=== PATIENT | male | born 1940 | race Two or more races ===

== ENCOUNTER 2024-10-26 15:08 | Outpatient (REF) | payer MEDICAID, SELFPAY ==
--- OUTSIDE RECORDS SUMMARY | 2024-10-26 17:53 | XMS_ITS | Data Portability ---
Author Organization [place] - [facility], Allergy Address [address] [address] Assessment No assessment recorded. Plan of Treatment Reminders Order Date Submit Date Provider Last Modified By Organization Details Last Modified Time Details Appointments None record ed. Lab None record ed. Referral None record ed. Procedures None record ed. Surgeries None record ed. Imaging None record ed. Medication Orders None record ed. Patient TargetsNo targets recorded. Patient InstructionsNo instructions recorded. Reason for Referral None Reported. Results Created Date Observation Date Name Description Value Unit Range Abnormal Flag Note LastModifiedBy Organization Detail LastModifiedTime 10/10/19 25 audio gram No observ ation record ed. BARCODE Not Available 2024 16:30:45 Result Notes None recorded. Problems Name Problem SNOMED Code Status Onset Date Resolution Date Notes Provider Name and Address Organization Details Recorded Time Impacted cerumen of bilateral ears 1325409565229 108 Active 2024 KAJAL Lopez MD [address] [place] [address], [place], [address], [facility] 10:14:57 Sensorineur al hearing loss of bilateral ears 979286931 Active 2024 KAJAL Lopez MD [address] [place] [address], [place], [address], [facility] 10:19:05 Problem Notes None recorded. Procedures Surgical History Date Name Laterality Status Provider Name and Address Organization Details Recorded Time 10/10/19 25 Tympanometry (21761) completed FLORENTIN HERNANDEZ 100 [facility],[place] [address], [place], [address], [facility] 10/09/2024 10:32:09 10/10/19 25 Air & Bone Audio (12068) completed FRANCO MORGAN, [facility] 100 [facility],[place] [address], [place], [address], [facility] - [facility] 10/09/2024 10:32:02 Imaging Results Imaging Date Name Status LastModified by Organiz ation Details LastModified Time 10/09/2024 audiogram completed BARCODE Information no t available 10/09/2024 16:30:45 Procedure Notes None recorded. Medical Equipment None Reported. Medications Name Sig Start Date Stop Date Status Note LastModified by Organization Details LastModified Time amoxicillin 500 mg capsule TAKE 1 CAPSULE BY MOUTH EVERY 8 HOURS UNTIL FINISHED active Not Available Not Available No t Available Vitals Date Recorded Body height Body mass index (BMI) Body weight Provider Name and Address Organization Details Last Updated DateTime 10/09/2024 167.64 cm 23.6 kg/m2 19340.49 g Rubén Magana [place] - [facility] 10/09/2024 09:53:21 Social History None recorded. Functional Status None recorded. Mental Status None recorded. Family History Nothing Reported. Medical History No medical history recorded. Past Encounters Encounter ID Performer Location Encounter Start Date Encounter Closed Date Diagnosis/Indication Diagnosis SNOMED-CT Code Diagnosis ICD10 Code Diagnosis Note [id number] KAJAL BLANC MD [facility] on [address] [place] [address] 10/09/2024 09:26:28 10/09/2024 09:42:48 Sensorineural hearing loss of bilateral ears 056020888 H90.3 Audiologic al evaluation results: 10/09/2024R ight ear:{{Norm al Normal through 2 kHz Mild* Moderate M oderately- severe Sev ere Profou nd}} {{hearing hearing. s loping to a mild slopi ng to a moderate s loping to moderately severe slo ping to severe* sl oping to profound f lat high frequency low frequency mid frequency cookie bite dupree curve}} {{with sen sorineural hearing loss with* cond uctive hearing loss with mixed hearing loss with}}Left ear:{{Norm al Normal through 2 kHz Mild M oderate* M oderately- severe Sev ere Profou nd}} {{hearing hearing. s loping to a mild slopi ng to a moderate s loping to moderately severe slo ping to severe slo ping to profound* flat high frequency low frequency mid frequency cookie bite dupree curve}} {{with sen sorineural hearing loss with* cond uctive hearing loss with mixed hearing loss with}} Tympanomet ry:Right Ear:{{Type A* Type A with rounded peak Type A with double peak Type As Type As with rounded peak Type Ad Type C Type C, shallow & rounded peak Type B Type B with large volume Cou ld not maintain a hermetic seal}}Left Ear:{{Type A* Type A with rounded peak Type A with double peak Type As Type As with rounded peak Type Ad Type C Type C, shallow & rounded peak Type B Type B with large volume Cou ld not maintain a hermetic seal}} Patient's audiogram shows bilateral {{mild mod erate* sev ere}} sensorineu ral hearing loss with {{well maintained moderatel y reduced po or unknown #}} speech discrimina tion. There is enough hearing loss to affect day-to-day hearing performanc e. We discussed in detail the pros and cons of amplificat ion (hearing aids). Patient would like to learn more about this option so {{we will set them up for a hearing aid evaluation I have provided a copy of the audiogram, a list of [facility] hearing aid providers, and medical clearance for amplificat ion so the patient can pursue this at their convenienc e}}. Patient is medically cleared for amplificat ion {{in the right ear in the left ear bilate rally*}}. Health Concerns Section Related Observation LastModified by Organization Detai ls LastModified Time None Recorded Concern Status LastModified by Organization Details LastModified Time None Recorded Advance Directives Directive None Recorded Payers Encounter Date Sequence Insurance Name Policy Number Policy Dwyer Covered Member ID Dwyer Member ID Guarantor Name 10/09/2024 1 [place] [facility] Trina Jones [id number] Trina Jones Notes Date Note Type Note Provider Name and Address Organization Details Recorded Time 10/09/2024 text/html He presents with decline in his hearing in the left ear over 10 years. The patient denies other ear problems. Has tinnitus AU. KAJAL BLANC MD [address] [place] [address], [place], [address], [facility] - [facility] 10/09/2024 10:38:53
== END 2024-10-26 15:09 | disposition home or self-care (01) ==
LOC: HO.HAP 15:08
PROVIDERS: Visit Provider Otolaryngology
DX: Z46.1 Encounter for fitting and adjustment of hearing aid (principal); H90.3 Sensorineural hearing loss, bilateral
CPT/HCPCS: 92591

== ENCOUNTER 2024-11-24 14:07 | Outpatient (REF) | payer MEDICAID, SELFPAY ==
--- OUTSIDE RECORDS SUMMARY | 2024-11-24 14:08 | XMS_ITS | Data Portability ---
Author Organization [place] - [facility], Allergy Address [address] [address] Assessment No assessment recorded. Plan of Treatment [...] Recorded Time Impacted cerumen of bilateral ears 7647168464932 108 Active 2024 KAJAL Lopez MD [address] [place] [address], [place], [address], [facility] 10:14:57 Sensorineur al hearing loss of bilateral ears 152984782 Active 2024 KAJAL Lopez MD [address] [place] [address], [place], [address], [facility] 10:19:05 Problem Notes None recorded. Procedures Surgical History Date Name Laterality Status Provider Name and Address Organization Details Recorded Time 10/10/19 25 Tympanometry - 38869 completed FRANCO MORGAN, AUD 100 [facility],[place] [address], [place], [address], [facility] 10/09/2024 10:32:09 10/10/19 25 Air & Bone Audio - 78710 completed FRANCO MORGAN, AUD 100 [facility],[place] [address], [place], [address], [facility] - [facility] 10/09/2024 10:32:02 Imaging Results Imaging Date Name [...] Updated DateTime 10/09/2024 167.64 cm 23.6 kg/m2 95475.49 g Rubén Magana [place] - [facility] 10/09/2024 09:53:21 Social History None recorded. Functional Status None recorded. Mental Status None recorded. Family History Nothing Reported. Medical History No medical history recorded. Past Encounters Encounter ID Performer Location Encounter Start Date Encounter Closed Date Diagnosis/Indication Diagnosis SNOMED-CT Code Diagnosis ICD10 Code Diagnosis Note [id number] KAJAL BLANC MD [facility] on 6 [place] [address] 10/09/2024 09:26:28 10/09/2024 09:42:48 Sensorineural hearing loss of bilateral ears [id number] H90.3 Audiologic al evaluation results: 10/09/2024R ight [...] copy of the audiogram, a list of [facility] hearing aid providers, and medical clearance for [...] Recorded Advance Directives Directive None Recorded Payers Insurance Date Sequence Insurance Name Policy Number Policy Dwyer Covered Member ID Dwyer Member ID Guarantor Name [id number] 1 [place]: [id number] Trina Jones [id number] Trina Jones Notes Date Note Type Note Provider Name and Address Organization Details Recorded Time 10/09/2024 text/html He presents with decline in his hearing in the left ear over 10 years. The patient denies other ear problems. Has tinnitus AU. KAJAL BLANC MD [address] [place] [address], [place], [address], [facility] - [facility] 10/09/2024 10:38:53
--- NOTE | 2024-11-27 09:16 | MHC.AU.HA2 ---
Hearing Instrument Fitting- Adult- Binaural Date of Visit: 11/27/24 Railroad Crane Operator Used: Phone interpreter for the deaf. See note. Hearing Instruments Dispensed: Right Ear: Make, Model, Color, Serial Number: Oticon Intent 2 miniRITE R, honey beige [id number] Coater Operator Repair Warranty: 11/27/2027 Coater Operator Loss and Damage Warranty: 11/27/2027 [facility] Service Plan: Battery Size: Rechargeable Tapper Bit/Slim Tube: 2 85 [place]/Dome/CShell/SlimTip: 8mm power dome Type of Wax Guard: Oticon Minifit Prowax Left Ear: Make, Model, Color, Serial Number: Oticon Intent 2 miniRITE R, honey beige [id number] Coater Operator Repair Warranty: 11/27/2027 Coater Operator Loss and Damage Warranty: 11/27/2027 [facility] Service Plan: Battery Size: Rechargeable Tapper Bit/Slim Tube: 2 85 [place]/Dome/CShell/SlimTip: 8mm power dome Type of Wax Guard: Oticon Minifit Prowax Accessories/Assistive Technology: Oticon tank charger minirite S#[id number] Warranty 11/27/2027 Summary of Fitting: Trina is here with his son-in-law for fitting with Oticon Intent 2 miniRITE R hearing aids. Railroad Crane Operator note: Pt/family member requested video interpreter for the deaf as no in-person was available through agency, unable to get video due to high-demand for language at that time despite several attempts with both companies, Alejandra was present for observation and assisted. Pt's family member assisted in interpreting the voice call as pt had difficult time understanding audio. Programmed and verified to NAL-NL2 real ear targets. Pt very pleased with sound quality. VC active. Reviewed basics of use, cleaning, insertion/removal, charging. Review wax guards at follow up. Plans to pair with phone at home. Follow up in 2-3 weeks. Recommendations: Recommendations: A hearing instrument follow-up is recommended in 2-3 weeks. Diagnosis Code(s): Primary Diagnosis: H90.3 Bilateral Sensorineural Hearing Loss Signature: Provider: Rosi Hester, [facility]
== END 2024-11-24 14:08 | disposition home or self-care (01) ==
LOC: HO.HAP 14:07
PROVIDERS: Visit Provider Otolaryngology
DX: Z46.1 Encounter for fitting and adjustment of hearing aid (principal); H90.3 Sensorineural hearing loss, bilateral
CPT/HCPCS: V5011; V5020; V5160; V5261

== ENCOUNTER 2024-12-14 14:08 | Outpatient (REF) | payer MEDICAID, SELFPAY ==
--- OUTSIDE RECORDS SUMMARY | 2024-12-14 16:45 | XMS_ITS | Data Portability ---
Author Organization [place] - [facility], Allergy Address [address] [address] Assessment No assessment recorded. Plan of Treatment [...] Recorded Time Impacted cerumen of bilateral ears 0267341615353 108 Active 2024 KAJAL Lopez MD [address] [place] [address], [place], [address], [facility] 10:14:57 Sensorineur al hearing loss of bilateral ears 453041930 Active 2024 KAJAL Lopez MD [address] [place] [address], [place], [address], [facility] 10:19:05 Problem Notes None recorded. Procedures Surgical History Date Name Laterality Status Provider Name and Address Organization Details Recorded Time 10/10/19 25 Tympanometry - 83588 completed FRANCO MORGAN, AUD 100 [facility],[place] [address], [place], [address], [facility] 10/09/2024 10:32:09 10/10/19 25 Air & Bone Audio - 20338 completed FRANCO MORGAN, AUD 100 [facility],[place] [address], [place], [address], [facility] - [facility] 10/09/2024 10:32:02 Imaging Results None recorded. Procedure Notes None recorded. Medical Equipment None [...] Updated DateTime 10/09/2024 167.64 cm 23.6 kg/m2 89189.49 g Rubén Magana [place] - [facility] 10/09/2024 09:53:21 Social History None recorded. Functional Status None recorded. Mental Status None recorded. Family History Nothing Reported. Medical History No medical history recorded. Past Encounters Encounter ID Performer Location Encounter Start Date Encounter Closed Date Diagnosis/Indication Diagnosis SNOMED-CT Code Diagnosis ICD10 Code Diagnosis Note [id number] KAJAL BLANC MD [facility] on [address] [place] [address] 10/09/2024 09:26:28 10/09/2024 09:42:48 Sensorineural hearing loss of bilateral ears [id number] H90.3 Audiologic al evaluation results: 10/09/2024R ight ear:Mild sloping to severe sensorineu ral hearing loss withLeft ear:Modera te sloping to profound sensorineu ral hearing loss with Tympanomet ry:Right Ear:Type ALeft Ear:Type A Patient's audiogram shows bilateral moderate sensorineu ral hearing loss with well maintained moderatel y reduced po or unknown speech discrimina tion. There is enough hearing loss to affect day-to-day hearing performanc e. We discussed in detail the pros and cons of amplificat ion (hearing aids). Patient would like to learn more about this option so . Patient is medically cleared for amplificat ion bilaterall y. Health Concerns Section Related Observation LastModified by Organization Detai ls LastModified Time None Recorded Concern Status LastModified by Organization Details LastModified Time None Recorded Advance Directives Directive None Recorded Payers Insurance Date Sequence Insurance Name Policy Number Policy Dwyer Covered Member ID Dwyer Member ID Guarantor Name [id number] 1 [place]: [facility] Trina Jones [id number] Trina Jones Notes Date Note Type Note Provider Name and Address Organization Details Recorded Time 10/09/2024 text/html He presents with decline in his hearing in the left ear over 10 years. The patient denies other ear problems. Has tinnitus AU. KAJAL BLANC MD [address] [place] [address], [address] - [facility] 10/09/2024 10:38:53
== END 2024-12-14 14:09 | disposition home or self-care (01) ==
LOC: HO.HAP 14:08
PROVIDERS: Visit Provider Otolaryngology
DX: Z13.89 Encounter for screening for other disorder (principal)

== ENCOUNTER 2025-06-19 14:33 | Outpatient (REF) | payer SELFPAY ==
--- OUTSIDE RECORDS SUMMARY | 2025-06-19 20:31 | XMS_ITS | Encounter Summary ---
Author Organization [facility] Address [address] [facility] [address] [place] [address] Phone Care Team Providers Care Field Map Editor Name Role Phone Lenny Charles Primary Care Provider Demetria Ray Unavailable [phone] Encounter Details Date Type Department Care Team (Late Contact Info) Description 05/19/2024 Procedure Pass [facility], Ct Scan - [address] [address] Social History Tobacco Use Types Packs/Day Years Used Date Smoking Tobacco: Never Smokeless Tobacco: Never Alcohol Use Standard Drinks/Week Comments Never 0 (1 standard drink = 0.6 oz pur e alcohol) Education Answer Date Recorded Are you interested in more education? Not on faisal e 02/28/2024 Are you concerned about learning? Not on file 02/28/2024 No 02/28/2024 No 02/28/2024 Digital Access Answer Date Recorded No 02/28/2024 No 02/28/2024 Reliable internet access at home? Not on file 02/28/2024 Device with a working camera? Not on file Sex and Gender Information Value Date Recorded Sex Assigned at Not on file Legal Sex Male 12:07 PM EDT Gender Identity Not on file Sexual Orientation Not on file documented as of this encounter Plan of Treatment Upcoming Encounters Date Type Department Care Team (Late Contact Info) Description 07/13/2025 12:30 PM EST Office Visit [facility] [address] [place] [address] Unknown, Unknown, Yadira Holliday PA-C [address] [place] [address] 08/02/2025 1:30 PM EST Blood Draw [facility] [address] [place] [address] Demetria Ray MBBS [address] [place] [address] 08/02/2025 2:30 PM EST Office Visit [facility] [address] [place] [address] Ashley Irene NP [address] [place] [address] [email or web address] documented as of this encounter Visit Diagnoses Not on filedocumented in this encounter Care Teams Field Map Editor Relationship Specialty Start Date End Date Lenny Charles PA [address] [place] [address] [email or web address] PCP - General Physician Clinical Trial Leader 02/28/24 Demetria Ray MBBS [address] [place] [address] [email or web address] Medical Oncology 04/05/24 documented as of this encounter Additional Source Comments The information contained in this document represents components of the legal health record. It is not the complete legal health record.[facility]
--- OUTSIDE RECORDS SUMMARY | 2025-06-19 20:31 | XMS_ITS | Encounter Summary ---
Author Organization [facility] Address [address] [facility] [address] [place] [address] Phone Care Team Providers Care Mint Machine Operator Name Role Phone Lenny Charles Primary Care Provider [phone] Demetria Ray Unavailable [phone] Encounter Details Date Type Department Care Team (Late Contact Info) Description 05/19/2024 Procedure Pass [facility], Ct Scan - [address] [address] Social History Tobacco Use Types Packs/Day Years [...] Description 07/13/2025 12:30 PM EST Office Visit [facility] 10 [place] [address] Unknown, Unknown, Yadira Holliday PA-C [address] [place] [address] 08/02/2025 1:30 PM EST Blood Draw [facility] 30 [place] [address] Demetria Ray MBBS [address] [place] [address] 08/02/2025 2:30 PM EST Office Visit [facility] [address] [place] [address] Ashley Irene NP [address] [place] [address] [email or web address] documented as of this encounter Visit Diagnoses Not on filedocumented in this encounter Care Teams Mint Machine Operator Relationship Specialty Start Date End Date Lenny Charles PA [address] [place] [address] [email or web address] PCP - General Physician Program Dir 02/28/24 Demetria Ray MBBS [address] [place] [address] [email or web address] Medical Oncology 04/05/24 documented as of this encounter Additional Source Comments The information contained in this document represents components of the legal health record. It is not the complete legal health record.[facility]
--- OUTSIDE RECORDS SUMMARY | 2025-06-19 20:31 | XMS_ITS | Clinical Summary ---
Author Organization [facility] Address [address] [address] Phone Care Team Providers Care Pigment Mixer Name Role Phone Lenny Charles Primary Care Provider [phone] Demetria Ray Unavailable [phone] Allergies Active Allergy Reactions Criticality Noted Date Comments Iodinated Contrast Media Hives Medium 04/03/2025 Medications No known medications Active Problems Problem Noted Date Diagnosed Date Diarrhea 04/16/2025 Assessment & Plan (04/16/2025 4:50 PM EDT): This is an 84-year-old gentleman with diarrhea and mild dull lower abdominal discomfort of unknown etiology. The patient had an ultrasound that showed gallstones without any evidence of cholecystitis. The patient does not have upper abdominal pain, indigestion. He does not have any problems with eating certain foods. The patient has been referred to GI but does not have an appointment yet. A CAT scan of the abdomen pelvis was also ordered but has not been scheduled. I gave the patient and his son-in-law information so that they can schedule the CAT scan. They will call the primary care to discuss getting an appointment for the plastics repairer as he has already been referred. This does not seem to be biliary in nature. There is no indication for any surgical intervention at this time. I personally reviewed the ultrasound results and all of the referral information that came over from the patient's primary care physician. Patient should follow-up on as-needed basis. I spent 47 minutes with this patient. The entire exam was performed using the in person parts interpreter Kym Jones. Thrombocytopenia 05/19/2024 Assessment & Plan (01/25/2025 9:17 AM EDT): 84-year-old male with history of chronic isolated moderate thrombocytopenia . I reviewed the differential diagnosis of thrombocytopenia at length with the patient and his son-in-law. He reports being in his usual state of health today, with no progressive fatigue, unintentional weight loss, abdominal pain, night sweats, recurrent infections or abnormal bleeding. He is hepatitis C negative. There is no history of alcohol use. No prior history of autoimmune disorders but has vitiligo . 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 If his platelet count drops and he requires intervention, I would consider a bone marrow examination along with treatment of presumed ITP, to rule out a coexisting disorder. He is happy with this plan and is not interested in any invasive procedures. 6-month follow- up with CBC. Assessment & Plan (06/21/2024 11:12 AM EST): 83-year-old male with history of chronic isolated moderate thrombocytopenia . I reviewed the differential diagnosis of thrombocytopenia at length with the patient and his son-in-law. He reports being in his usual state of health today, with no progressive fatigue, unintentional weight loss, abdominal pain, night sweats, recurrent infections or abnormal bleeding. He is hepatitis C negative. There is no history of alcohol use. No prior history of autoimmune disorders but has vitiligo . 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 If his platelet count drops and he requires intervention, I would consider a bone marrow examination along with treatment of presumed ITP, to rule out a coexisting disorder. He is happy with this plan and is not interested in any invasive procedures. 6-month follow- up with CBC. Obtain BOO, hepatitis B surface antigen and folate level today. Assessment & Plan (05/19/2024 3:08 PM EST): 83-year-old male with history of chronic isolated moderate thrombocytopenia of unclear etiology. I reviewed the differential diagnosis of thrombocytopenia at length with the patient and his son-in-law. He reports being in his usual state of health today, with no progressive fatigue, unintentional weight loss, abdominal pain, night sweats, recurrent infections or abnormal bleeding. He is hepatitis C negative. There is no history of alcohol use. No prior history of autoimmune disorders. At this time I have recommended the lab work below and CT imaging studies to assess liver and spleen size, and to review for masses or lymphadenopathy. I have answered all questions to the patient's satisfaction. Review in approximately 3 weeks with results. Splenomegaly 05/19/2024 Encounters Date Type Department Care Team Description 04/16/2025 3:45 PM EDT Office Visit [facility] [address] [place] [address] Michelle Epperson MD Diarrhea, unspecified type (Primary Dx) 04/03/2025 Orders Only [facility] IR Rad [address] [place] [address] Maldonado Lucas MD 03/26/2025 Transcribe Orders Virtual Department [address] [place] [address] Lenny Charles PA LLQ abdominal pain (Primary Dx) 03/21/2025 9:50 AM EDT - 03/21/2025 11:59 PM EDT Hospital Encounter [facility] - [address] [place], [place] [address] Lenny Charles PA Discharge Disposition: Home or Self Care 03/20/2025 Transcribe Orders Virtual Department [address] [place] [address] Lenny Charles PA Epigastric abdominal pain (Primary Dx) from Last 3 Months Immunizations Immunization Administration Dates Next Due Pneumococcal conjugate PCV20 02/28/2024 Pneumococcal polysaccharide PPSV23 12/05/2022 Family History Medical History Relation Comments Hypertension Brother Hypertension Father Relation Status Comments Brother Alive Father Mother Social History Tobacco Use Types Packs/Day Years Used Date Smoking Tobacco: Never Smokeless Tobacco: Never Tobacco Cessation:Counseling Given: Not Answered Alcohol Use Standard Drinks/Week Comments Never 0 [...] on file Sexual Orientation Not on file Last Filed Vital Signs Vital Sign Reading Time Taken Comments Blood Pressure 110/60 04/16/2025 3:57 PM EDT Pulse 73 04/16/2025 3:57 PM EDT Temperature 36.6 C (97.8 F) 04/16/2025 3:57 PM EDT Respiratory Rate - - Oxygen Saturation 96% 04/16/2025 3:57 PM EDT Inhaled Oxygen Concentration - - Weight 68.1 kg (150 lb 3.2 oz) 04/16/2025 3:57 P M EDT Height 169 cm (5' 6.54 ) 04/16/2025 3:57 PM EDT Body Mass Index 23.85 04/16/2025 3:57 PM EDT Plan of Treatment Upcoming Encounters Date Type Department Care Team (Late st Contact Info) Description 07/13/2025 12:30 PM EST Office Visit [facility] [address] [place] [id number] Unknown, Unknown, Yadira Holliday PA-C [address] [place] [id number] 08/02/2025 1:30 PM EST Blood Draw [facility] [address] [place] [phone] Demetria Ray MBBS [address] [place] [address] 08/02/2025 2:30 PM EST Office Visit [facility] at [address] [place] [address] Ashley Irene NP [address] [place] [address] [email or web address] Due Date Last Done Comments Adult Td,Tdap Booster 1940 DEPRESSION SCREENING 1952 ZOSTER VACCINES (1 of 2) 1990 RSV VACCINE (1 - 1-dose 75+ series) 10/19/2015 INFLUENZA VACCINE (#1) 2025 COVID-19 VACCINE (1 - 2024-2 6 season) 2025 PNEUMOCOCCAL VACCINES (50+ years) Completed 02/28/2024, 12/05/2022 HEPATITIS A VACCINES Aged Out No long er eligible based on patient's age to complete this topic HIB VACCINES Aged Out No longer eligi ble based on patient's age to complete this topic MENINGOCOCCAL VACCINES (ACWY) Aged Out No longer eligible based on patient's age to complete this topic MENINGOCOCCAL VACCINES (B) Aged Out N o longer eligible based on patient's age to complete this topic Medical Devices Not on file Procedures Procedure Name Priority Date/Time Associated Diagnosis Comments US ABDOMEN COMPLETE (ADULT) Routine 03/21/2025 10:37 AM EDT Epigastric abdominal pain from Last 3 Months Results * US ABDOMEN COMPLETE (ADULT) (03/21/2025 10:37 AM EDT) Anatomical Region Laterality Modality Abdomen Ultrasound 03/21/2025 11:4 0 AM EDT Impressions 03/21/2025 11:58 AM EDT * Cholelithiasis without sonographic evidence of acute cholecystitis. * Centrilobular pattern of hepatic echogenicity, nonspecific, can be a normal finding. Can also be seen with right heart failure and hepatitis. Narrative 03/21/2025 11:58 AM EDT US ABDOMEN COMPLETE (ADULT) Referring clinician's provided indication for this examination in Epic: Outside Radiology Order; abdomen pain TECHNIQUE: Abdominal Ultrasound Complete. COMPARISON: CT ABDOMEN/PELVIS WITH CONTRAST FINDINGS: Liver: There is a centrilobular pattern of echogenicity with bright echogenic dots along the left hepatic lobe (starry corky) into a lesser extent the right hepatic lobe, nonspecific. Main portal vein: Patent portal vein with normally directed flow. Gallbladder: Cholelithiasis. No gallbladder wall thickening or pericholecystic fluid. Marketing Researcher reports a negative sonographic Delgado sign. Biliary: No intrahepatic or extrahepatic biliary ductal dilation. The common bile duct measures 7 mm, similar to prior exam. Pancreas: Incompletely seen. Spleen: No splenomegaly, measures 10.5 cm. Kidneys: No shadowing stones or hydronephrosis. Aorta: Nondilated, where visualized sonographically. Inferior vena cava: Patent intrahepatic segment. Procedure Note Anny Ricci MD - 03/21/2025 US ABDOMEN COMPLETE (ADULT) Referring clinician's provided indication for this examination in Epic:Outside Radiology Order; abdomen pain TECHNIQUE: Abdominal Ultrasound Complete. COMPARISON: CT ABDOMEN/PELVIS WITH CONTRAST FINDINGS: Liver: There is a centrilobular pattern of echogenicity with brightechogenic dots along the left hepatic lobe (starry corky) into a lesserextent the right hepatic lobe, nonspecific. Main portal vein: Patent portal vein with normally directed flow. Gallbladder: Cholelithiasis. No gallbladder wall thickening orpericholecystic fluid. Marketing Researcher reports a negative sonographic Murphysign. Biliary: No intrahepatic or extrahepatic biliary ductal dilation. The common bile duct measures 7 mm, similar to prior exam. Pancreas: Incompletely seen. Spleen: No splenomegaly, measures 10.5 cm. Kidneys: No shadowing stones or hydronephrosis. Aorta: Nondilated, where visualized sonographically. Inferior vena cava: Patent intrahepatic segment. IMPRESSION: * Cholelithiasis without sonographic evidence of acute cholecystitis. * Centrilobular pattern of hepatic echogenicity, nonspecific, can be anormal finding. Can also be seen with right heart failure and hepatitis. Lenny BECKWITH [facility] US ABDOMEN Final Result from Last 3 Months Insurance [place] Care Teams Pigment Mixer Relationship Specialty Start Date End Date Lenny Charles PA [address] [place] [address] [email or web address] PCP - General Physician Supervisor Purification 02/28/24 Demetria Ray MBBS [address] [place] [id number] Medical Oncology 04/05/24 Additional Source Comments The information contained in this document represents components of the legal health record. It is not the complete legal health record.[facility]
--- OUTSIDE RECORDS SUMMARY | 2025-06-19 20:31 | XMS_ITS | Encounter Summary ---
Author Organization [facility] Address [address] [place] [address] [place] [phone] Phone Care Team Providers Care Developer Prover Upholstering Name Role Phone Lenny Charles Primary Care Provider [phone] Demetria Ray Unavailable [phone] Encounter Details Date Type Department Care Team ([facility] Contact Info) Description 03/26/2025 Transcribe Orders Virtual Department [address] [place] [address] Lenny Charles PA [address] [place] [address] [email or web address] LLQ abdominal pain (Primary Dx) Social History Tobacco Use Types Packs/Day Years [...] Description 07/13/2025 12:30 PM EST Office Visit [facility] [address] [place] [address] Unknown, Unknown, Yadira Holliday PA-C [address] [address] [email or web address] 08/02/2025 1:30 PM EST Blood Draw [facility] [address] [place] [address] Demetria Ray MBBS [address] [place] [address] [email or web address] 08/02/2025 2:30 PM EST Office Visit [facility] [address] [place] [address] Ashley Irene, MALACHI [address] [place] [address] [email or web address] documented as of this encounter Visit Diagnoses Diagnosis LLQ abdominal pain- Primary Abdominal pain, left lower quadrant documented in this encounter Care Teams Developer Prover Upholstering Relationship Specialty Start Date End Date Lenny Charles PA [address] [place] [id number] PCP - General Physician Control Electrician 02/28/24 Demetria Ray MBBS [address] [place] [phone] Medical Oncology 04/05/24 documented as of this encounter Additional Source Comments The information contained in this document represents components of the legal health record. It is not the complete legal health record.[facility]
--- OUTSIDE RECORDS SUMMARY | 2025-06-19 20:31 | XMS_ITS | Encounter Summary ---
Author Organization [facility] Address [address] [place] [address] [place] [address] Phone Care Team Providers Care Speech And Hearing Director Name Role Phone Lenny Charles Primary Care Provider Demetria Ray Unavailable [phone] Encounter Details Date Type Department Care Team ([facility] Contact Info) Description 03/20/2025 Transcribe Orders Virtual Department [address] [place] [address] Lenny Charles PA [address] [place] [id number] [email or web address] Epigastric abdominal pain (Primary Dx) Social History Tobacco [...] Description 07/13/2025 12:30 PM EST Office Visit [facility] [address] [place] [address] Unknown, Unknown, Yadira Holliday PA-C [address] [address] [email or web address] 08/02/2025 1:30 PM EST Blood Draw [facility] [address] [place] [address] eDmetria Ray MBBS [address] [place] [address] [email or web address] 08/02/2025 2:30 PM EST Office [facility] [address] [place] [address] Ashley Irene NP [address] [place] [address] [email or web address] documented as of this encounter Results * US ABDOMEN COMPLETE (ADULT) (03/21/2025 [...] No gallbladder wall thickening or pericholecystic fluid. Le[employer] Parts Cutter reports a negative sonographic Delgado sign. Biliary: No intrahepatic or extrahepatic biliary ductal dilation. The common bile duct measures 7 mm, similar to prior exam. Pancreas: Incompletely seen. Spleen: No splenomegaly, measures 10.5 cm. Kidneys: No shadowing stones or hydronephrosis. Aorta: Nondilated, where visualized sonographically. Inferior vena cava: Patent intrahepatic segment. Procedure Note Anny iRcci MD - 03/21/2025 US ABDOMEN COMPLETE (ADULT) [...] Cholelithiasis. No gallbladder wall thickening orpericholecystic fluid. [employer] Cutter reports a negative sonographic Murphysign. Biliary: No [...] with right heart failure and hepatitis. Lenny PETTIT US ABDOMEN Final Result documented in this encounter Visit Diagnoses Diagnosis Epigastric abdominal pain- Primary Abdominal pain, epigastric Epigastric abdominal pain Abdominal pain, epigastric documented in this encounter Care Teams Speech And Hearing Director Relationship Specialty Start Date End Date Lenny Charles PA [address] [place] [id number] [email or web address] PCP - General Physician Lockmaker 02/28/24 Demetria Ray MBBS [address] [place] [address] [email or web address] Medical Oncology 04/05/24 documented as of this encounter Additional Source Comments The information contained in this document represents components of the legal health record. It is not the complete legal health record.[facility]
== END 2025-06-19 14:34 | disposition home or self-care (01) ==
LOC: HO.HAP 14:33
PROVIDERS: Visit Provider Physician Assistant
DX: H90.3 Sensorineural hearing loss, bilateral (principal)
CPT/HCPCS: V5267